=== PATIENT | male | born 1945 | race Caucasian/White ===

== ENCOUNTER 2024-03-22 09:51 | Emergency (ER) | payer MEDICARE, OTHER | END 2024-03-22 14:00 | disposition home or self-care (01) | LOC: JP.ED 09:51 → MERGE 09:51 → JP.ED 14:00 | DX: S83.92XA Sprain of unspecified site of left knee, initial encounter (principal); S76.912A Strain of unspecified muscles, fascia and tendons at thigh level, left thigh, initial encounter; I10 Essential (primary) hypertension; Z90.49 Acquired absence of other specified parts of digestive tract; Z87.891 Personal history of nicotine dependence; Z95.0 Presence of cardiac pacemaker; X50.1XXA Overexertion from prolonged static or awkward postures, initial encounter | CPT/HCPCS: 73562-26-LT; 73562-LT; 99283 ==